=== PATIENT | female | born 1970 | race Native Hawaiian/Other Pacific Islander ===

== ENCOUNTER 2019-03-24 09:39 | Outpatient (CLI) | payer OTHER ==
[~2019-03-24 09:39] MED LIST: ACET7.5T70 PO; ALPR0.2566 PO; ASA LO-DOSE81 MG OR; CELEXA20 MG PO; CELEXA40 MG PO; GABA300C2 PO; HYDR25TA60 PO; IBUP800T30 PO; METFORMIN ER1000 MG PO; OMEP40CA PO; TRIA37.541 PO; VICTOZA18 MG/3 ML SC
== END 2019-03-24 21:37 | disposition home or self-care (01) ==
LOC: MRI 09:39
DX: M54.16 Radiculopathy, lumbar region (principal); M25.552 Pain in left hip

== ENCOUNTER 2019-04-02 15:29 | Inpatient (IN) | payer OTHER ==
[~2019-04-02] VITALS: Ht 165.1 cm; Wt 95.9 kg
[2019-04-02 17:40] VITALS: BP 158/98; TEMP 97.7
[2019-04-02 18:51] LABS: PLATELET COUNT 325 K/uL (152-353)
[2019-04-02 18:55] LABS: POTASSIUM 3.8 mmol/L (3.6-5.2)
[2019-04-02 20:00] VITALS: BP 139/82; TEMP 99.1
[2019-04-02 20:12] VITALS: BP 158/98; TEMP 97.7; Ht 165.1 cm; Wt 95.9 kg
[2019-04-02] MEDS ORDERED: ROSUVASTATIN CA40 MG PO (20:56)
[2019-04-02] MEDS ORDERED: METO50TA63 PO (20:57)
[2019-04-02] MEDS ORDERED: APAP/OXYCOD1 TAB PO (21:00)
[2019-04-02] MEDS ORDERED: BACLOFEN10 MG PO (21:01)
[2019-04-02] MEDS ORDERED: OMEP40CA PO (21:01)
[2019-04-02] MEDS ORDERED: FENT12DI3 TD (21:02)
[2019-04-02] MEDS ORDERED: DULOXETINE HCL60 MG PO (21:07)
[2019-04-02] MEDS ORDERED: TRICOR145 M1 PO (21:08)
[2019-04-02] MEDS ORDERED: FURO40TA93 PO (21:09)
[2019-04-02] MEDS ORDERED: INSUINJP SC (21:10)
[2019-04-03] VITALS: BP 153/91; TEMP 98.5
[2019-04-03 04:00] VITALS: BP 139/84; TEMP 98.8
[2019-04-03 08:00] VITALS: BP 182/103; TEMP 98.3
[2019-04-03 12:00] VITALS: BP 165/87; TEMP 97.8
[2019-04-03 16:00] VITALS: BP 142/88; TEMP 98.4
[2019-04-03 20:00] VITALS: BP 124/80; TEMP 97.2
[2019-04-04] VITALS (7 sets, daily range): BP systolic 102–123; BP diastolic 54–75; TEMP 97.4–99.2
[2019-04-05 04:00] VITALS: BP 119/77; TEMP 97.5
[2019-04-05 08:00] VITALS: BP 133/89; TEMP 98.2
[2019-04-05 12:00] VITALS: BP 139/83; TEMP 98.5
[2019-04-05 16:00] VITALS: BP 143/74; TEMP 98.6
[2019-04-05 20:00] VITALS: BP 133/76; TEMP 98.1
[2019-04-06] VITALS: BP 139/65; TEMP 98.7
[2019-04-06 04:00] VITALS: BP 142/63; TEMP 98.7
[2019-04-06 08:00] VITALS: BP 131/70; TEMP 97.6
[2019-04-06 08:03] LABS: PLATELET COUNT 220 K/uL (152-353)
[2019-04-06 08:33] LABS: POTASSIUM 3.3 mmol/L (3.6-5.2)
[2019-04-06 12:00] VITALS: BP 119/72; TEMP 97.3
== END 2019-04-06 14:08 | disposition home or self-care (01) | DRG 552 ==
LOC: MED/SURG 15:29
PROVIDERS: ADMIT Internal Medicine
DX: M51.26 Other intervertebral disc displacement, lumbar region (principal); M53.3 Sacrococcygeal disorders, not elsewhere classified; I10 Essential (primary) hypertension; E11.9 Type 2 diabetes mellitus without complications; S62.635A Displaced fracture of distal phalanx of left ring finger, initial encounter for closed fracture; W06.XXXA Fall from bed, initial encounter; Y92.092 Bedroom in other non-institutional residence as the place of occurrence of the external cause; R00.0 Tachycardia, unspecified; R06.82 Tachypnea, not elsewhere classified; G89.29 Other chronic pain
CPT/HCPCS: 80053; 81000; 83735; 85027; 93005; J1170; J2270; J3475

== ENCOUNTER 2019-12-01 05:15 | Outpatient (CLI) | payer OTHER ==
[~2019-12-01 05:15] MED LIST changes: +APAP/OXYCOD1 TAB PO; +BACLOFEN10 MG PO; +DULOXETINE HCL60 MG PO; +FENT12DI3 TD; +FURO40TA93 PO; +INSUINJP SC; +METO50TA63 PO; +ROSUVASTATIN CA40 MG PO; +TRICOR145 M1 PO
[2019-12-01 06:43] LABS: PLATELET COUNT 270 K/uL (152-353)
[2019-12-01 06:57] LABS: POTASSIUM 3.7 mmol/L (3.6-5.2)
== END 2019-12-01 20:21 | disposition home or self-care (01) ==
LOC: MRI 05:15
PROVIDERS: Nurse Practitioner Family
DX: Z00.00 Encounter for general adult medical examination without abnormal findings (principal); M25.552 Pain in left hip; M54.5 Low back pain; I10 Essential (primary) hypertension; M51.86 Other intervertebral disc disorders, lumbar region; E11.9 Type 2 diabetes mellitus without complications; R00.0 Tachycardia, unspecified; E78.5 Hyperlipidemia, unspecified; Z79.899 Other long term (current) drug therapy
CPT/HCPCS: 36415; 80053; 80061; 82306; 82607; 83036; 84439; 84443; 84481; 85027; 85651; 86038; 86430

== ENCOUNTER 2019-12-31 13:16 | Outpatient (CLI) | payer OTHER | END 2019-12-31 23:03 | disposition home or self-care (01) | LOC: LAB 13:16 | DX: D64.9 Anemia, unspecified (principal); N95.1 Menopausal and female climacteric states; E55.9 Vitamin D deficiency, unspecified | CPT/HCPCS: 82306; 82672; 82728; 82746; 83001; 83540; 84144 ==

== ENCOUNTER 2020-01-26 12:03 | Outpatient (CLI) | payer OTHER | END 2020-01-26 23:29 | disposition home or self-care (01) | LOC: LAB 12:03 | DX: D64.9 Anemia, unspecified (principal); N95.1 Menopausal and female climacteric states; E55.9 Vitamin D deficiency, unspecified | CPT/HCPCS: 36415; 82672; 83001; 84144 ==

== ENCOUNTER 2021-03-27 10:25 | Outpatient (CLI) | payer OTHER | END 2021-03-27 19:00 | disposition home or self-care (01) | LOC: RESP 10:25 | PROVIDERS: ATTEND Internal Medicine | DX: G56.01 Carpal tunnel syndrome, right upper limb (principal); R20.2 Paresthesia of skin; G56.20 Lesion of ulnar nerve, unspecified upper limb | CPT/HCPCS: 95885; 95909 ==

== ENCOUNTER 2021-11-02 14:05 | Outpatient (CLI) | payer OTHER ==
[2021-11-02 14:43] LABS: PLATELET COUNT 251 K/uL (152-353)
[2021-11-02 15:07] LABS: POTASSIUM 4.2 mmol/L (3.6-5.2)
== END 2021-11-02 21:12 | disposition home or self-care (01) ==
LOC: LAB 14:05
PROVIDERS: ATTEND Internal Medicine
DX: M54.16 Radiculopathy, lumbar region (principal); E11.65 Type 2 diabetes mellitus with hyperglycemia; R20.2 Paresthesia of skin; I10 Essential (primary) hypertension; E78.49 Other hyperlipidemia; D64.89 Other specified anemias; F41.9 Anxiety disorder, unspecified; K21.9 Gastro-esophageal reflux disease without esophagitis; E55.9 Vitamin D deficiency, unspecified; Z79.82 Long term (current) use of aspirin; R53.83 Other fatigue; Z79.4 Long term (current) use of insulin; Z79.84 Long term (current) use of oral hypoglycemic drugs; Z79.891 Long term (current) use of opiate analgesic; R53.81 Other malaise; N95.1 Menopausal and female climacteric states
CPT/HCPCS: 80053; 80061; 82306; 82672; 83036; 84144; 84443; 85027; 86038

== ENCOUNTER 2022-02-14 13:01 | Outpatient (CLI) | payer OTHER ==
[2022-02-14 13:25] LABS: PLATELET COUNT 243 K/uL (152-353)
== END 2022-02-14 19:26 | disposition home or self-care (01) ==
LOC: LAB 13:01
PROVIDERS: ATTEND Nurse Practitioner Family
DX: I10 Essential (primary) hypertension (principal); E11.9 Type 2 diabetes mellitus without complications; E55.9 Vitamin D deficiency, unspecified; E78.49 Other hyperlipidemia; D64.89 Other specified anemias; F41.9 Anxiety disorder, unspecified; K21.9 Gastro-esophageal reflux disease without esophagitis; G62.89 Other specified polyneuropathies; R53.83 Other fatigue; Z79.899 Other long term (current) drug therapy; Z79.4 Long term (current) use of insulin
CPT/HCPCS: 80053; 80061; 82306; 82607; 83036; 84439; 84443; 85027

== ENCOUNTER 2022-08-14 13:40 | Outpatient (CLI) | payer OTHER ==
[2022-08-14 14:04] LABS: PLATELET COUNT 246 K/uL (152-353)
[2022-08-14 14:23] LABS: POTASSIUM 3.9 mmol/L (3.6-5.2)
== END 2022-08-14 19:27 | disposition home or self-care (01) ==
LOC: LAB 13:40
PROVIDERS: ATTEND Nurse Practitioner Family
DX: I10 Essential (primary) hypertension (principal); E11.9 Type 2 diabetes mellitus without complications; E55.9 Vitamin D deficiency, unspecified; F41.8 Other specified anxiety disorders; M54.16 Radiculopathy, lumbar region; E78.49 Other hyperlipidemia; D64.89 Other specified anemias; K21.9 Gastro-esophageal reflux disease without esophagitis; R53.83 Other fatigue; F90.0 Attention-deficit hyperactivity disorder, predominantly inattentive type; M54.89 Other dorsalgia; R20.2 Paresthesia of skin; Z79.82 Long term (current) use of aspirin; Z79.899 Other long term (current) drug therapy
CPT/HCPCS: 80053; 80061; 82306; 82670; 83001; 83036; 84403; 84439; 84443; 85027

== ENCOUNTER 2022-11-21 13:42 | Outpatient (CLI) | payer OTHER ==
[2022-11-21 14:28] LABS: PLATELET COUNT 229 K/uL (152-353)
[2022-11-21 14:53] LABS: POTASSIUM 3.5 mmol/L (3.6-5.2)
== END 2022-11-21 22:31 | disposition home or self-care (01) ==
LOC: LAB 13:42
PROVIDERS: ATTEND Nurse Practitioner Family
DX: E11.65 Type 2 diabetes mellitus with hyperglycemia (principal); E78.49 Other hyperlipidemia; F41.8 Other specified anxiety disorders; E55.9 Vitamin D deficiency, unspecified; K21.9 Gastro-esophageal reflux disease without esophagitis; D64.89 Other specified anemias; R53.83 Other fatigue; G62.89 Other specified polyneuropathies; N18.9 Chronic kidney disease, unspecified; M54.89 Other dorsalgia; Z79.899 Other long term (current) drug therapy; E78.1 Pure hyperglyceridemia; M51.86 Other intervertebral disc disorders, lumbar region; Z79.82 Long term (current) use of aspirin; K59.00 Constipation, unspecified; R53.81 Other malaise; I12.9 Hypertensive chronic kidney disease with stage 1 through stage 4 chronic kidney disease, or unspecified chronic kidney disease
CPT/HCPCS: 80053; 80061; 82306; 83036; 84439; 84443; 85027

== ENCOUNTER 2023-03-03 15:25 | Outpatient (CLI) | payer OTHER ==
[2023-03-03 15:48] LABS: PLATELET COUNT 247 K/uL (152-353)
[2023-03-03 16:11] LABS: POTASSIUM 4.2 mmol/L (3.6-5.2)
== END 2023-03-03 19:18 | disposition home or self-care (01) ==
LOC: LAB 15:25
PROVIDERS: ATTEND Nurse Practitioner Family
DX: E78.49 Other hyperlipidemia (principal); E11.9 Type 2 diabetes mellitus without complications; R53.83 Other fatigue; F41.9 Anxiety disorder, unspecified; E55.9 Vitamin D deficiency, unspecified; I10 Essential (primary) hypertension
CPT/HCPCS: 80053; 80061; 82306; 83036; 84439; 84443; 85027